=== PATIENT | male | born 1935 | race Two or more races ===

== ENCOUNTER 2017-09-23 08:02 | Emergency (ER) | payer OTHER, SELFPAY ==
[~2017-09-23] VITALS: Ht 167.6 cm; Wt 84.9 kg
[2017-09-23] MEDS ORDERED: AMLO5TAB2 PO (08:24)
[2017-09-23] MEDS ORDERED: ALLO300T PO (08:24)
[2017-09-23] MEDS ORDERED: TAMS0.4C2 PO (08:24)
[2017-09-23 09:06] VITALS: BP 134/83
[2017-09-23 09:29] LABS: BASOPHILS # (AUTO) 0.03 x10^3/uL (0-0.1); BASOPHILS % (AUTO) 1 % (0-1); EOSINOPHILS % (AUTO) 2 % (1-7); LYMPHOCYTES % (AUTO) 37 % (22-44); MD NO; MEAN CORPUSCULAR HEMOGLOBIN 31.6 pg (27.5-34.5); MEAN CORPUSCULAR HGB CONC 33.7 g/dL (33.2-36.2); MEAN CORPUSCULAR VOLUME 93.9 fL (81-97); MEAN PLATELET VOLUME 9.6 fL (7.4-10.4); MONOCYTES # (AUTO) 0.42 x10^3/uL (0.2-0.8); MONOCYTES % (AUTO) 9 % (2-9); NEUTROPHILS # (AUTO) 2.41 x10^3/uL (1.8-6.8); NEUTROPHILS % (AUTO) 52 % (42-75); PLATELET COUNT 173 x10^3/uL (130-400)
[2017-09-23 09:38] LABS: ALANINE AMINOTRANSFERASE 19 U/L (12-78); ALBUMIN 3.2 g/dL (3.4-5.0); ANION GAP 7 mmol/L (5-15); CALCIUM 8.4 mg/dL (8.5-10.1); CHLORIDE 113 mmol/L (98-107); CREATININE 1.26 mg/dL (0.7-1.3)
[2017-09-23 09:40] LABS: ALKALINE PHOSPHATASE 81 U/L (45-117); BILIRUBIN,TOTAL 0.4 mg/dL (0.2-1.0); TOTAL PROTEIN 7.7 g/dL (6.4-8.2)
[2017-09-23 09:49] LABS: INTERNATIONAL NORMALIZED RATIO 1.05 (0.93-1.1); PROTHROMBIN TIME 10.8 Seconds (9.6-11.5)
== END 2017-09-23 10:49 | disposition home or self-care (01) ==
LOC: ED 10:07
DX: K62.5 Hemorrhage of anus and rectum (principal)
CPT/HCPCS: 36415; 80053; 85025; 85610; 85730; 99284

== ENCOUNTER 2018-12-27 07:37 | Inpatient (IN) | payer MEDICARE, OTHER ==
[~2018-12-27] VITALS: Ht 165.1 cm; Wt 75.8 kg
[2019-01-01 13:15] VITALS: BP 127/75
== END 2019-01-01 17:44 | disposition hospice, home (50) | DRG 374 ==
LOC: ED 09:11 → EDIP 09:39 → 3NW 10:42
PROVIDERS: ADMIT Family Medicine; ATTEND Family Medicine
PROC: 0DBN8ZX Excision of Sigmoid Colon, Via Natural or Artificial Opening Endoscopic, Diagnostic (ICD-10-PCS; principal; 2018-12-27)
DX: C18.7 Malignant neoplasm of sigmoid colon (principal); N17.0 Acute kidney failure with tubular necrosis; K83.1 Obstruction of bile duct; E44.1 Mild protein-calorie malnutrition; E87.2 Acidosis; G89.29 Other chronic pain; I10 Essential (primary) hypertension; R73.9 Hyperglycemia, unspecified; D64.9 Anemia, unspecified; M10.9 Gout, unspecified; Z60.2 Problems related to living alone; R91.8 Other nonspecific abnormal finding of lung field; K59.00 Constipation, unspecified; K64.8 Other hemorrhoids; N40.0 Benign prostatic hyperplasia without lower urinary tract symptoms; Z51.5 Encounter for palliative care; Z87.891 Personal history of nicotine dependence; Z80.9 Family history of malignant neoplasm, unspecified; Z88.0 Allergy status to penicillin; Z79.899 Other long term (current) drug therapy; Z68.27 Body mass index [BMI] 27.0-27.9, adult
CPT/HCPCS: 36415; 71270; 74177; 76700; 80053; 81001; 82378; 83605; 83690; 85025; 85610; 85730; 86304; 87086; 88305; 88341; 88342; 93005; 99152; 99153; 99285; G0378; J1644; J2250; J3010; J3480; Q9967; J7030; J7120